=== PATIENT | female | born 1975 | race Caucasian/White ===

== ENCOUNTER → 2017-06-22 08:59 | Outpatient (CLI) | payer BC, SELFPAY ==
[2017-06-22 09:48] LABS: Alanine Aminotransferase 21 U/L (12-78); Albumin Level 3.8 gm/dL (3.4-5.0); Alkaline Phosphatase 72 U/L (46-116); Anion Gap 11.1 mEq/L (5-15); Aspartate Amino Transferase 9 U/L (15-37); Bilirubin,Total 0.2 mg/dL (0.2-1.0); Blood Urea Nitrogen 11 mg/dL (7-18); Calcium 8.4 mg/dL (8.5-10.1); Carbon Dioxide 27 mmol/L (21.0-32.0); Chloride 106 mmol/L (98-107); Chol/HDL Ratio 6.7 (1-3.5); Cholesterol 248 mg/dL (140-200); Creatinine,Serum 0.66 mg/dL (0.55-1.02); Estimated Glomerular Filt Rate 98 ml/min (>60); GFR (African American) 118 ML/MIN (>60); Glucose 107 mg/dL (74-106); HDL Cholesterol 37 mg/dL (29-89); LDL Cholesterol 170 mg/dL (0-130); Potassium 4.1 mmoL/L (3.5-5.1); Sodium 140 mmol/L (136-145); Thyroid Stimulating Hormone 1.82 uIU/ml (0.358-3.740); Total Protein,Serum 7.8 gm/dL (6.4-8.2); Triglycerides 204 mg/dL (30-200); VLDL Cholesterol 41 mg/dL (0-40)
== END ==
PROVIDERS: PCP Family Medicine; Visit Provider Nurse Practitioner
DX: E78.2 Mixed hyperlipidemia (principal); Z13.29 Encounter for screening for other suspected endocrine disorder
CPT/HCPCS: 36415; 80053; 80061; 84439; 84443

== ENCOUNTER → 2017-07-13 08:54 | Outpatient (CLI) | payer BC, SELFPAY ==
--- NOTE | 2017-07-13 09:06 | MM_ITS ---
MM Dig screening mamm BI w/CAD CAD Screening ORDERING PHYSICIAN : Imelda George PATIENT AGE: 41 years GENDER: Female COMPARISON: Bilateral mammogram June 2015 and 2014 Right mammogram from 2014 INDICATION: Routine screening no hormones. No new complaints . Noncontributory family history. TECHNIQUE: Standard CC and MLO images were obtained. R2 CAD reviewed. FINDINGS: Moderate residual fibroglandular elements most evident towards upper outer quadrant both right and left breast. Prior films are helpful and supportive that the mild asymmetry & slight inhomogeneous character is stable with no significant new findings RIGHT BREAST:The minimal nodularity previously question the retroareolar region is less evident today but no significant new findings. Certainly no progression.. If anything the nodularity is less evident throughout right breast. Small stable intramammary lymph nodes towards the axillary right breast. Can be followed LEFT BREAST: No significant new findings. Overall appearance is similar to 2016 again noting some focal mild asymmetric glandular tissue towards upper-outer quadrant which overall appears stable follow-up in one year would be recommended and should be emphasized IMPRESSION: No significant new findings. Overall Stable mammogram . Would recommend an encourage bilateral follow-up in one year for ongoing evaluation particularly in this patient BI-RADS Category: 2 Benign Finding(s) RECOMMENDED FOLLOW-UP: 1YR - 1 YEAR FOLLOW-UP (A letter has been sent to the patient regarding results of the study.)
== END ==
PROVIDERS: PCP Family Medicine; Visit Provider Nurse Practitioner
DX: Z12.31 Encounter for screening mammogram for malignant neoplasm of breast (principal)
CPT/HCPCS: 77067

== ENCOUNTER → 2019-05-30 14:42 | Outpatient (CLI) | payer BC, SELFPAY ==
--- NOTE | 2019-05-30 14:49 | MM_ITS ---
PROCEDURE: MM DIG SCREENING MAMM BI W/CAD DIGITAL BREAST TOMOSYNTHESIS IMAGING INCLUDED Patient Age:43Y CLINICAL INDICATION: SCREENING no hormones. No new complaints. Noncontributory family history COMPARISON: [facility]B DIG MAMM-SCREEN SILVANA from 06/11/2014 DMDXUAVR DIG MAMM-DX UNI ADD VIEWS-RT from 06/21/2014 BR US BREAST-RT COMPLETE W/AXILLA from 06/21/2014 BR US BREAST-RT COMPLETE W/AXILLA from 12/06/2014 DMDXUR DIG MAMM-DX UNI-RT from 12/06/2014 DMSB DIG MAMM-SCREEN SILVANA from 06/14/2015 [facility] MM Dig screening mamm BI w/CAD from 07/13/2017 TECHNIQUE: Standard CC and MLO images were obtained. R2 CAD reviewed.DIGITAL BREAST TOMOSYNTHESIS IMAGING INCLUDED also right axillary CC view included FINDINGS: Scattered fibroglandular elements moderately dense most notable towards the superior breast bilaterally. Breast appear similar to previous studies with no dominant or new suspicious mass.. No suspicious calcifications moderate residual fibroglandular elements bilaterally most evident scattered throughout upper outer quadrant both breast. Left breast. No new areas of significant concern. A small focal asymmetric area at medial inferior left breast was seen previously. And appears to be more likely overlapping feature on MLO tomosynthesis However I would encourage and emphasize bilateral follow-up 1 year for ongoing evaluation bilateral Right breast. No new areas of significant concern Fibroglandular elements towards upper-outer quadrant appears similar to previous studies Longstanding stable small round 5-6 mm densities towards the axillary tail right breast most likely small intramammary nodes. The IMPRESSION: No new areas of significant Concern. Stable appearing scattered stable small densities stable; and mild asymmetry Bilateral follow-up 1 year recommended; and annual follow-up should be emphasized/encouraged. BI-RAD Category: 2 Benign Finding(s) FOLLOW-UP: 1YR 1 Year Follow-up the (A letter has been sent to the patient regarding results of the study.) Dictated by: Horace Harvey MD 06/02/2019 11:03 Electronically signed by Horace Harvey MD in [place] 06/02/2019 11:03
== END ==
PROVIDERS: PCP Family Medicine; Visit Provider Nurse Practitioner
DX: Z12.31 Encounter for screening mammogram for malignant neoplasm of breast (principal)
CPT/HCPCS: 77063; 77067

== ENCOUNTER → 2020-07-09 13:14 | Outpatient (CLI) | payer BC, SELFPAY ==
--- NOTE | 2020-07-09 13:17 | MM_ITS ---
PROCEDURE: MM DIG SCREENING MAMM BI W/CAD Digital Breast Tomosynthesis Included CLINICAL INDICATION: SCREENING There is no personal or family history of breast cancer. COMPARISON: Digital mammograms with CAD 05/30/2019, 07/13/2017, 06/14/2015 TECHNIQUE: Standard CC and MLO images and 3D Tomosynthesis was obtained. R2 CAD reviewed. FINDINGS: Moderate diffuse fibroglandular densities are seen throughout both breasts. There are 2 mole markers left breast. Couple of stable benign-appearing nodular densities in each breast unchanged from mammograms dating back to 06/14/2015. There are normal appearing nodes in both axilla. There is no suspicious lesion and no suspicious microcalcifications. IMPRESSION: Moderate breast density with no suspicious lesions seen BI-RAD Category: 2 Benign Finding(s) FOLLOW-UP: 1YR 1 Year Follow-up (A letter has been sent to the patient regarding results of the study.) Dictated by: Dr. Kush Gupta MD 07/17/2020 08:55 Dr. Kush Gupta MD in [place] 07/17/2020 08:55
== END ==
PROVIDERS: PCP Family Medicine; Visit Provider Family Medicine
DX: Z12.31 Encounter for screening mammogram for malignant neoplasm of breast (principal)
CPT/HCPCS: 77063; 77067

== ENCOUNTER → 2021-06-25 08:11 | Outpatient (CLI) | payer BC, SELFPAY ==
--- NOTE | 2021-06-25 08:15 | US_ITS ---
FINAL REPORT CLINICAL HISTORY: RUQ PAIN FINDINGS: ULTRASOUND RIGHT UPPER QUADRANT Sonographic imaging of the right upper quadrant was obtained. The pancreas is partially obscured. The liver is unremarkable. There is sludge within the gallbladder without evidence of gallstones. There is no gallbladder wall thickening. There is no biliary ductal dilatation. The common duct is normal at 2 mm. Limited images of the right kidney are unremarkable. IMPRESSION: Sludge within the gallbladder without evidence of gallstones. Reviewed, Interpreted and Dictated by Silas Jiang MD Transcribed by Whit Kim Authenticated by Silas Jiang MD on 06/25/2021 10:28:56 AM [facility]
== END ==
PROVIDERS: PCP Family Medicine; Visit Provider Family Medicine
DX: R10.11 Right upper quadrant pain (principal)
CPT/HCPCS: 76705

== ENCOUNTER → 2021-09-05 08:10 | Outpatient (CLI) | payer BC, SELFPAY ==
--- NOTE | 2021-09-05 08:12 | MM_ITS ---
PROCEDURE INFORMATION: Exam: MG Bilateral Screening 3D Mammography Exam date and time: 09/05/2021 8:26 AM Age: 45 years old Clinical indication: Screening examination TECHNIQUE: Imaging protocol: Bilateral Screening tomosynthesis and 2D mammography including computer-aided detection (CAD) when performed. COMPARISON: 1. MG MM DIG SCREENING MAMM BI W/CAD 07/09/2020 1:21 PM 2. MG MM DIG SCREENING MAMM BI W/CAD 05/30/2019 3:06 PM FINDINGS: MAMMOGRAPHY: Breast composition: There are scattered areas of fibroglandular density. Mass: None. Architectural distortion: None. Calcifications: No suspicious calcifications. Asymmetric density: None. Skin thickening: None. Axillary adenopathy: None. IMPRESSION: No mammographic evidence of malignancy. Annual screening is recommended unless otherwise clinically indicated. ASSESSMENT: BI-RADS Category 1: Negative
== END ==
PROVIDERS: PCP Family Medicine; Visit Provider Family Medicine
DX: Z12.31 Encounter for screening mammogram for malignant neoplasm of breast (principal)
CPT/HCPCS: 77063; 77067

== ENCOUNTER → 2022-10-07 12:57 | Outpatient (CLI) | payer BC, SELFPAY ==
--- NOTE | 2022-10-07 13:03 | MM_ITS ---
PROCEDURE INFORMATION: Exam: MG Bilateral Screening 3D Mammography Exam date and time: 10/07/2022 12:55 PM Age: 46 years old Clinical indication: Screening. No family history of breast cancer. TECHNIQUE: Imaging protocol: Bilateral Screening tomosynthesis and 2D mammography including computer-aided detection (CAD) when performed. COMPARISON: 1. MG MM DIG SCREENING MAMM BI W/CAD 09/05/2021 8:26 AM 2. MG MM DIG SCREENING MAMM BI W/CAD 07/09/2020 1:21 PM 3. MG MM DIG SCREENING MAMM BI W/CAD 05/30/2019 3:06 PM 4. MG [facility] MM Dig screening mamm BI w/CAD 07/13/2017 9:09 AM FINDINGS: MAMMOGRAPHY: Breast composition: There are scattered areas of fibroglandular density. Mass: No suspicious mass. Architectural distortion: None. Calcifications: No suspicious calcifications. Asymmetric density: None. Skin thickening: None. Axillary adenopathy: None. IMPRESSION: No mammographic evidence of malignancy. Annual screening is recommended unless otherwise clinically indicated. ASSESSMENT: BI-RADS Category 1: Negative
== END ==
PROVIDERS: PCP Family Medicine; Visit Provider Internal Medicine Cardiovascular Disease
DX: Z12.31 Encounter for screening mammogram for malignant neoplasm of breast (principal)
CPT/HCPCS: 77063; 77067